=== PATIENT | female | born 1990 | race Caucasian/White ===

== ENCOUNTER → 2021-12-08 09:37 | Outpatient (BNVA) | payer MEDICAID, SELFPAY | PROVIDERS: Family Provider Nurse Practitioner; PCP Nurse Practitioner; Referring Provider Nurse Practitioner; Visit Provider Surgery | DX: Z11.52 Encounter for screening for COVID-19 (principal) | CPT/HCPCS: 87635 ==

== ENCOUNTER 2021-12-09 07:45 | Day surgery (SDC) | payer MEDICAID, SELFPAY ==
[2021-12-08 11:10] VITALS: BMI 37.1
--- NOTE | 2021-12-09 08:00 | ANES.PREANE2 ---
Pre-Anesthetic Assessment Height/Weight: Height 1.68 m Weight 104.326 kg Preop Diagnosis: Epigastric pain Operation Date: 12/09/21 08:30 Proposed Procedures p EGD [id number]/r10.13(Not Applicable) - Khai Elizabeth MD Familial anesthetic complications: None Was Beta Albreto taken within 24 hours: N/A Was Clonidine taken within 24 hours: N/A Last intake: > 8hrs Social No alcohol and No tobacco Exam alert, oriented x 3, clear to auscultation bilaterally and regular rate & rhythm Airway Cervical ROM: within normal limits Mallampati: Class II Dentition: full GI Gastroesophageal Reflux Disease Anesthetic Plan ASA status: 2 Anesthesia: MAC Medications/Allergies Home Medications Medication Instructions Recorded Confirmed Last Taken Type citalopram 20 mg tablet 20 mg PO DAILY 12/08/21 12/08/21 Unknown History omeprazole 40 mg capsule,delayed 40 mg PO TID cap 12/08/21 12/08/21 Unknown History release Allergies Allergy/AdvReac Type Severity Reaction Status Date / Time No Known Allergies Allergy Verified 12/08/21 13:08 [facility] Anesthesia Social History Smoking and tobacco status: never smoked Data Anesthesia Cardiac Studies: No Data to Display
--- NOTE | 2021-12-09 08:02 | W.PM.OPSUD ---
Surgery/Procedure H&P Update DATE OF PROCEDURE: December 09, 2021 DATE H&P PERFORMED: 12/08/21 PREOP DIAGNOSIS: Epigastric pain PRIMARY INDICATION FOR PROCEDURE: The same PLANNED PROCEDURE: Operation Date: 12/09/21 08:30 Proposed Procedures p EGD [id number]/r10.13(Not Applicable) - Khai Elizabeth MD
[2021-12-09 08:43] VITALS: BP 123/72; PULSE 75; RESP 16; TEMP 36.3; O2SAT 98
[2021-12-09] MEDS: sodium chloride 0.9% 1,000 ML 30 ML IV (08:52)
[2021-12-09 09:05] VITALS: BP 146/108; PULSE 77; RESP 16; TEMP 36.5; O2SAT 98
[2021-12-09 09:15] VITALS: BP 140/94; PULSE 67; RESP 16; O2SAT 98
--- NOTE | 2021-12-09 09:44 | PC.NURSE ---
Pt encouraged to ambulate to encourage belching and/or passing gas
--- NOTE | 2021-12-09 14:12 | ANE.PACU2 ---
Inpatient post-anesthesia follow up: Airway intact: Yes Vital signs: Temperature 97.7 F Pulse Rate 67 Respiratory Rate 16 Blood Pressure 140/94 Pulse Oximetry 98 Oxygen Delivery Me thod Room Air Oxygen Flow Rate Fraction of Inspir ed Oxygen Hydration adequate: Yes Nausea and vomiting: No Pain level: 1 Mental status: Baseline
[2021-12-10 06:04] LABS: H. Pylori / CLO Test Negative
== END 2021-12-09 09:50 | disposition home or self-care (01) ==
PROVIDERS: PCP Nurse Practitioner; Visit Provider Surgery
PROC: 0DJ08ZZ Inspection of Upper Intestinal Tract, Via Natural or Artificial Opening Endoscopic (ICD-10-PCS; CPT 43235; principal; 2021-12-09 08:30)
DX: R10.13 Epigastric pain (principal); K21.9 Gastro-esophageal reflux disease without esophagitis; K29.70 Gastritis, unspecified, without bleeding
CPT/HCPCS: 43239; 87077; J2704; J7030

== ENCOUNTER → 2022-02-23 13:05 | Outpatient (BNVA) | payer BC, MEDICAID, SELFPAY | PROVIDERS: PCP Nurse Practitioner; Visit Provider Surgery | DX: E66.9 Obesity, unspecified (principal); Z68.37 Body mass index [BMI] 37.0-37.9, adult; Z86.69 Personal history of other diseases of the nervous system and sense organs; Z86.79 Personal history of other diseases of the circulatory system; M54.9 Dorsalgia, unspecified; G89.29 Other chronic pain | CPT/HCPCS: 99213 ==

== ENCOUNTER → 2022-03-23 13:21 | Outpatient (BNVA) | payer BC, MEDICAID, SELFPAY | PROVIDERS: PCP Nurse Practitioner; Visit Provider Surgery | DX: E66.9 Obesity, unspecified (principal); Z68.37 Body mass index [BMI] 37.0-37.9, adult; R68.89 Other general symptoms and signs | CPT/HCPCS: 99213 ==

== ENCOUNTER 2023-05-04 20:00 | Outpatient (CLI) | payer BC, MEDICAID, SELFPAY | END 2023-05-04 20:01 | disposition home or self-care (01) | LOC: SLEEP 05-05 05:05 | PROVIDERS: PCP Nurse Practitioner; Visit Provider Family Medicine | DX: R06.83 Snoring (principal); R53.83 Other fatigue; G47.36 Sleep related hypoventilation in conditions classified elsewhere | CPT/HCPCS: 95810 ==